=== PATIENT | male | born 1940 | race Caucasian/White ===

== ENCOUNTER → 2016-10-10 | Outpatient (REF) ==
[~2016-10-10] MED LIST: ARICEPT10 MG PO; ASPIRIN 81M81 MG/TA2 PO; CARDIZEM CD 12120 MG PO; FLOMAX 0.40.4 MG/CAP PO; HCTZ 25MG TAB25 MG PO; KEPPRA 500MG500 MG PO; KLOR-CON 1010 MEQ PO; MULTI VITAMINS1 TAB PO; NAMENDA 10MG TA10 MG PO; NORCO 325 MG-7.1 TAB PO; PRINIVIL10 MG PO; VITAMIN B COMPL1 T16 PO; VITAMIN D31000 IU PO; ZOLOFT 50MG50 MG PO
[2016-10-10 13:27] LABS: BASO % 0.7 % (0.0-2.0); EOS # 0.3 (0.0-0.7); GRAN # 4.1 (1.4-6.5); GRAN % 67.5 % (42.2-75.2); HEMATOCRIT 41.1 % (42.0-52.0); HEMOGLOBIN 13.8 g/dl (13.5-18.0); LYMPH # 1.2 (1.2-3.4); LYMPH % 19.5 % (20.0-51.0); MEAN CELL VOLUME 102 fl (80.0-100.0); MEAN CORPUSCULAR HEMOGLOBIN 34 pg (27.0-31.0); MEAN CORPUSCULAR HGB CONC 34 g/dl (33.0-37.0); MEAN PLATELET VOLUME 12.7 fl (7.4-10.4); MONO # 0.4 (0.1-0.6); PLATELET COUNT 92 K/mm3 (130-400); RED BLOOD COUNT 4.05 M/mm3 (4.20-5.60); REDCELL DISTRIBUTION WIDTH-CV 13.4 % (11.5-14.5); WHITE BLOOD COUNT 6.1 K/mm3 (4.8-10.8)
[2016-10-10 13:38] LABS: ADJUSTED CALCIUM 9.8 mg/dL (8.4-10.2); ALBUMIN 3.6 gm/dL (3.5-5.0); BILIRUBIN,TOTAL 1.5 mg/dL (0.0-1.0); CALCIUM 9.5 mg/dL (8.4-10.2); CREATININE, serum 0.93 mg/dL (0.66-1.25); POTASSIUM 4.2 mmol/L (3.4-5.0); TOTAL PROTEIN 6.5 gm/dL (6.4-8.2)
== END ==
LOC: ZCOL.LAB 13:16
PROVIDERS: Internal Medicine
DX: Z01.89 Encounter for other specified special examinations (principal)

== ENCOUNTER → 2018-02-08 | Outpatient (CLI) | payer MEDICARE, BC ==
[2018-02-08 16:22] LABS: BASO % 0.3 % (0.0-2.0); EOS # 0.1 (0.0-0.7); EOS % 0.9 % (0-4.0); GRAN # 6.4 (1.4-6.5); GRAN % 73.7 % (42.2-75.2); HEMATOCRIT 39.8 % (42.0-52.0); HEMOGLOBIN 13.7 g/dl (13.5-18.0); LYMPH % 11.8 % (20.0-51.0); MEAN CELL VOLUME 99 fl (80.0-100.0); MEAN CORPUSCULAR HEMOGLOBIN 34 pg (27.0-31.0); MEAN CORPUSCULAR HGB CONC 34 g/dl (33.0-37.0); MEAN PLATELET VOLUME 12.4 fl (7.4-10.4); MONO # 1.1 (0.1-0.6); MONO % 13.1 % (1.7-9.3); PLATELET COUNT 92 K/mm3 (130-400); RED BLOOD COUNT 4.02 M/mm3 (4.20-5.60); REDCELL DISTRIBUTION WIDTH-CV 13.6 % (11.5-14.5)
[2018-02-08 16:33] LABS: ALBUMIN 3.2 gm/dL (3.5-5.0); BILIRUBIN,TOTAL 2.1 mg/dL (0.0-1.0); CALCIUM 8.8 mg/dL (8.4-10.2); CREATININE, serum 0.8 mg/dL (0.66-1.25); POTASSIUM 3.5 mmol/L (3.4-5.0); TOTAL PROTEIN 6.3 gm/dL (6.4-8.2); URIC ACID 6.2 mg/dL (3.5-8.5)
== END ==
LOC: ZCOL.LAB 16:07
PROVIDERS: Internal Medicine
DX: M10.071 Idiopathic gout, right ankle and foot (principal)

== ENCOUNTER → 2019-03-05 | Outpatient (CLI) | payer MEDICARE, BC ==
[2019-03-05 16:17] LABS: BASO % 0.6 % (0.0-2.0); EOS # 0.2 (0.0-0.7); EOS % 3.7 % (0-4.0); GRAN # 3.8 (1.4-6.5); GRAN % 69.7 % (42.2-75.2); HEMATOCRIT 41.3 % (42.0-52.0); HEMOGLOBIN 13.8 g/dl (13.5-18.0); LYMPH % 17.7 % (20.0-51.0); MEAN CELL VOLUME 104 fl (80.0-100.0); MEAN CORPUSCULAR HEMOGLOBIN 35 pg (27.0-31.0); MEAN CORPUSCULAR HGB CONC 33 g/dl (33.0-37.0); MEAN PLATELET VOLUME 12.1 fl (7.4-10.4); MONO # 0.4 (0.1-0.6); MONO % 7.9 % (1.7-9.3); PLATELET COUNT 66 K/mm3 (130-400); RED BLOOD COUNT 3.99 M/mm3 (4.20-5.60); REDCELL DISTRIBUTION WIDTH-CV 13.7 % (11.5-14.5)
[2019-03-05 16:23] LABS: ALANINE AMINOTRANSFERASE 14 U/L (21-72); ALBUMIN 3.4 gm/dL (3.5-5.0); ALKALINE PHOSPHATASE 68 U/L (50-136); ANION GAP 8 mmol/L (7-16); AST,SGOT 17 U/L (15-37); BILIRUBIN,TOTAL 1.1 mg/dL (0.0-1.0); BLOOD UREA NITROGEN 23 mg/dL (9-20); CALCIUM 8.8 mg/dL (8.4-10.2); CARBON DIOXIDE 27 mmol/L (22-30); CHLORIDE 107 mmol/L (98-107); CREATININE, serum 0.99 (0.66-1.25); GLUCOSE 90 mg/dL (74-106); POTASSIUM 3.9 mmol/L (3.4-5.0); SODIUM 142 mmol/L (137-145); TOTAL PROTEIN 5.9 gm/dL (6.4-8.2)
[2019-03-05 16:34] LABS: TROPONIN-I < 0.012 ng/mL (0.000-0.035)
== END ==
LOC: ZCOL.LAB 16:00
PROVIDERS: Nurse Practitioner Family
DX: R06.02 Shortness of breath (principal)

== ENCOUNTER 2020-01-17 15:42 | Emergency (ER) | payer MEDICARE, BC ==
[~2020-01-17] VITALS: Ht 175.3 cm; Wt 77.7 kg
[2020-01-17 15:54] VITALS: TEMP 98
[2020-01-17 16:17] LABS: BASO # 0.1 (0.0-0.2); BASO % 0.9 % (0.0-2.0); EOS # 0.3 (0.0-0.7); EOS % 4.3 % (0-4.0); GRAN % 69.4 % (42.2-75.2); HEMATOCRIT 42.2 % (42.0-52.0); HEMOGLOBIN 14.4 g/dl (13.5-18.0); LYMPH # 1.1 (1.2-3.4); LYMPH % 18.3 % (20.0-51.0); MEAN CELL VOLUME 102 fl (80.0-100.0); MEAN CORPUSCULAR HEMOGLOBIN 35 pg (27.0-31.0); MEAN CORPUSCULAR HGB CONC 34 g/dl (33.0-37.0); MEAN PLATELET VOLUME 12.1 fl (7.4-10.4); MONO # 0.4 (0.1-0.6); MONO % 6.9 % (1.7-9.3); PLATELET COUNT 61 K/mm3 (130-400); RED BLOOD COUNT 4.15 M/mm3 (4.20-5.60); REDCELL DISTRIBUTION WIDTH-CV 13.6 % (11.5-14.5)
[2020-01-17 16:36] LABS: COLLECTION METHOD CLEAN CATCH
[2020-01-17 16:37] LABS: ALBUMIN 3.8 gm/dL (3.5-5.0); BILIRUBIN,TOTAL 1.1 mg/dL (0.0-1.0); C-REACTIVE PROTEIN 0.6 mg/dL (0.0-0.9); CREATININE, serum 0.91 (0.66-1.25); POTASSIUM 3.7 mmol/L (3.4-5.0); TOTAL PROTEIN 6.9 gm/dL (6.4-8.2)
[2020-01-17 16:47] LABS: MUCOUS Present /lpf; PH 5 (5-8); SQUAMOUS EPITHELIAL 0-2 /hpf; URINE APPEARANCE Hazy; URINE BACTERIA None Seen /hpf; URINE BILIRUBIN Negative (NEGATIVE); URINE BLOOD 3+ (NEGATIVE); URINE COLOR Yellow; URINE GLUCOSE Negative (NEGATIVE); URINE KETONE Negative (NEGATIVE); URINE LEUKOCYTE ESTERASE Negative (NEGATIVE); URINE NITRATE Negative (NEGATIVE); URINE PROTEIN(semi-quant) Negative (NEGATIVE); URINE RBC >50 /hpf; URINE UROBILINOGEN Negative (NEGATIVE)
[2020-01-17] MEDS ORDERED: LOTENSIN HCT 201 TA1 PO (16:49)
[2020-01-17 17:42] VITALS: BP 136/103
[2020-01-17] MEDS ORDERED: NORCO 325 MG-51 TAB PO (17:56)
[2020-01-17 18:30] VITALS: PULSE 77
== END 2020-01-17 18:29 | disposition home or self-care (01) ==
LOC: COL.ER 15:42
PROVIDERS: Emergency Medicine
DX: N13.2 Hydronephrosis with renal and ureteral calculous obstruction (principal); I10 Essential (primary) hypertension; F03.90 Unspecified dementia, unspecified severity, without behavioral disturbance, psychotic disturbance, mood disturbance, and anxiety; Z86.73 Personal history of transient ischemic attack (TIA), and cerebral infarction without residual deficits; Z79.82 Long term (current) use of aspirin
CPT/HCPCS: J1885; J2270; J2405; J3010; J7030; Q9967

== ENCOUNTER 2020-10-09 18:04 | Emergency (ER) | payer MEDICARE, BC ==
[~2020-10-09] VITALS: Ht 180.3 cm; Wt 81.8 kg
[~2020-10-09 18:04] MED LIST changes: +LOTENSIN HCT 201 TA1 PO; +NORCO 325 MG-51 TAB PO
[2020-10-09 18:06] VITALS: TEMP 97.5
[2020-10-09 18:55] LABS: BASO % 0.8 % (0.0-2.0); EOS # 0.2 (0.0-0.7); EOS % 4.9 % (0-4.0); GRAN # 3.5 (1.4-6.5); GRAN % 70.1 % (42.2-75.2); HEMATOCRIT 37.5 % (42.0-52.0); HEMOGLOBIN 12.2 g/dl (13.5-18.0); LYMPH # 0.8 (1.2-3.4); LYMPH % 16.3 % (20.0-51.0); MEAN CELL VOLUME 107 fl (80.0-100.0); MEAN CORPUSCULAR HEMOGLOBIN 35 pg (27.0-31.0); MEAN CORPUSCULAR HGB CONC 33 g/dl (33.0-37.0); MEAN PLATELET VOLUME 12.8 fl (7.4-10.4); MONO # 0.4 (0.1-0.6); MONO % 7.5 % (1.7-9.3); PLATELET COUNT 67 K/mm3 (130-400); REDCELL DISTRIBUTION WIDTH-CV 14.5 % (11.5-14.5)
[2020-10-09 20:51] VITALS: BP 145/110; PULSE 80
== END 2020-10-09 20:49 | disposition home or self-care (01) ==
LOC: COL.ER 18:04
PROVIDERS: Physician Assistant
DX: S09.90XA Unspecified injury of head, initial encounter (principal); S00.03XA Contusion of scalp, initial encounter; S60.221A Contusion of right hand, initial encounter; S50.02XA Contusion of left elbow, initial encounter; I48.91 Unspecified atrial fibrillation; I10 Essential (primary) hypertension; F03.90 Unspecified dementia, unspecified severity, without behavioral disturbance, psychotic disturbance, mood disturbance, and anxiety; Z79.82 Long term (current) use of aspirin; W01.0XXA Fall on same level from slipping, tripping and stumbling without subsequent striking against object, initial encounter

== ENCOUNTER 2023-08-28 11:22 | Emergency (ER) | payer MEDICARE, BC ==
[2023-08-28 11:25] VITALS: TEMP 97.7
[2023-08-28 12:03] LABS: BASO % 0.2 % (0.0-2.0); EOS % 0.1 % (0.0-4.0); GRAN # 8.1 K/mm3 (1.4-6.5); GRAN % 83.4 % (42.2-75.2); HEMATOCRIT 46.4 % (42.0-52.0); HEMOGLOBIN 15.4 g/dl (13.5-18.0); LYMPH # 0.7 K/mm3 (1.2-3.4); LYMPH % 7.6 % (20.0-51.0); MEAN CELL VOLUME 104 fl (80.0-100.0); MEAN CORPUSCULAR HEMOGLOBIN 35 pg (27-31); MEAN CORPUSCULAR HGB CONC 33 g/dl (33.0-37.0); MEAN PLATELET VOLUME 11.6 fl (7.4-10.4); MONO # 0.8 K/mm3 (0.1-0.6); MONO % 8.4 % (1.7-9.3); PLATELET COUNT 116 K/mm3 (130-400); RED BLOOD COUNT 4.45 M/mm3 (4.20-5.60); REDCELL DISTRIBUTION WIDTH-CV 13.3 % (11.5-14.5)
[2023-08-28] MEDS ORDERED: droPERidol 2.5 MG/ML 2 ML VIAL IV ONE (12:15)
[2023-08-28 12:19] LABS: ALBUMIN 3.4 gm/dL (3.4-4.8); CALCIUM 9.9 mg/dL (8.4-10.2); CREATININE, serum 0.85 mg/dL (0.72-1.25); POTASSIUM 3.8 mmol/L (3.5-4.5); TOTAL PROTEIN 7.8 gm/dL (6.2-8.1)
[2023-08-28 12:26] LABS: TROPONIN-I 0.014 ng/mL (0.00-0.033)
[2023-08-28 13:32] LABS: COLLECTION METHOD CLEAN CATCH
[2023-08-28 13:46] LABS: PH 5.5 (5.0-8.5); SQUAMOUS EPITHELIAL 0-2 /hpf (0-10); URINE APPEARANCE Clear (CLEAR/HAZY); URINE BLOOD Negative (NEGATIVE); URINE COLOR Yellow (YELLOW); URINE GLUCOSE Negative (NEGATIVE); URINE KETONE 1+ (NEGATIVE); URINE NITRATE Negative (NEGATIVE); URINE PROTEIN(semi-quant) Negative (NEGATIVE); URINE RBC 0-2 /hpf (0-2); URINE UROBILINOGEN 0.2 E.U/dL (0.2-1.0)
[2023-08-28 13:47] LABS: URINE BACTERIA None Seen /hpf (NONE SEEN)
--- NOTE | 2023-08-28 15:47 | NUR ---
hot mill worker met with patient who brought her spouse in as he has dementia and was not acting himself. Patient and reside in [facility] independent [facility] Worker collaborated with Jennifer at [facility] and conveyed, to , that they [facility] will have a special care laborer marine terminal care bed open on 08/29/22 and/or can start home health services. states that she will talk with Jennifer and is open to placing patient in the memory care unit tomorrow. Worker collaborated with ED physician regarding the above information. Patient will discharge home with spouse.
[2023-08-28 17:05] VITALS: BP 126/95; PULSE 123
== END 2023-08-28 17:25 | disposition home or self-care (01) ==
LOC: COL.ER 11:22
PROVIDERS: Emergency Medicine
DX: S62.001A Unspecified fracture of navicular [scaphoid] bone of right wrist, initial encounter for closed fracture (principal); G89.29 Other chronic pain; M25.511 Pain in right shoulder; W19.XXXA Unspecified fall, initial encounter
CPT/HCPCS: J1790